=== PATIENT | female | born 1960 | race Two or more races ===

== ENCOUNTER 2018-02-13 14:22 | Emergency (ER) | payer OTHER ==
[~2018-02-13] VITALS: Ht 162.6 cm; Wt 83.9 kg
[~2018-02-13 14:22] MED LIST: ABILIFY30 MG PO; ALPRAZOLAM ER1 MG; CARAFATE1 G; CARDIZEM LA240 MG PO; DILTIAZEM 24HR240 MG; KOMBIGLYZE XR1 EAC2; METFORMIN HCL500 M1; METROPOLOL; MONTELUKAST SOD10 MG; PRILOSEC20 MG; QUETIAPINE FUM300 MG; SIMVASTATIN20 MG; SYNTHROID100 MCG; SYNTHROID50 MCG; SYNTHROID88 MCG; ULTRAM50 MG; XANAX1 MG; ZOLOFT100 MG PO
[2018-02-14] MEDS ORDERED: NEURONTIN300 MG (08:24)
[2018-02-14] MEDS ORDERED: KOMBIGLYZE XR1 EAC2 (08:25)
== END 2018-02-14 12:53 | disposition home or self-care (01) ==
LOC: ER 14:22
DX: R42 Dizziness and giddiness (principal); R11.11 Vomiting without nausea; T42.4X5A Adverse effect of benzodiazepines, initial encounter; Y92.89 Other specified places as the place of occurrence of the external cause

== ENCOUNTER 2020-11-18 16:17 | Outpatient (CLI) | payer OTHER ==
[~2020-11-18 16:17] MED LIST changes: +NEURONTIN300 MG
== END 2020-11-18 17:00 | disposition home or self-care (01) ==
LOC: PPH VACUNA 16:17
DX: Z23 Encounter for immunization (principal)

== ENCOUNTER 2020-12-10 08:00 | Outpatient (CLI) | payer OTHER | END 2020-12-10 08:30 | disposition home or self-care (01) | LOC: PPH VACUNA 08:00 | DX: Z23 Encounter for immunization (principal) ==

== ENCOUNTER 2023-06-15 13:31 | Outpatient (CLI) | payer OTHER ==
[~2023-06-15 13:31] MED LIST changes: +METHOCARBAMOL500 MG PO; +VOLTAREN ARTHRI20 GM TOP
== END 2023-06-15 13:33 | disposition home or self-care (01) ==
LOC: SONOGRAMA 13:31
PROVIDERS: ATTEND Pathology Anatomic Pathology & Clinical Pathology
DX: D44.0 Neoplasm of uncertain behavior of thyroid gland (principal); E07.9 Disorder of thyroid, unspecified

== ENCOUNTER 2023-10-02 08:48 | Outpatient (CLI) | payer OTHER | END 2023-10-02 08:51 | disposition home or self-care (01) | LOC: SONOGRAMA 08:48 | PROVIDERS: ATTEND Pathology Anatomic Pathology | DX: D34 Benign neoplasm of thyroid gland (principal); E07.89 Other specified disorders of thyroid; E04.1 Nontoxic single thyroid nodule ==